=== PATIENT | female | born 1940 | race Caucasian/White ===

== ENCOUNTER 2018-10-05 17:54 | Emergency (ER) | payer OTHER ==
[2018-10-05] MEDS ORDERED: ALBUTEROL SO4 2.5/IPRATROPIUM 0.5 INH SOL 3 ML VIAL.NEB. NEB ONE ×4 (17:55→18:33)
--- NOTE | 2018-10-05 18:07 | PDOC ---
Documentation entered by Trevon Cortez SCRIBE, acting as scribe for Melissa Davenport MD. Melissa Davenport MD: This documentation has been prepared by the Diego au Xhesika, SCRIBE, under my direction and personally reviewed by me in its entirety. I confirm that the documentation accurately reflects all work, treatment, procedures, and medical decision making performed by me. Attending Attestation - Resident Resident Name: TommyAnia - ED Attending Attestation I have performed the following: I have examined & evaluated the patient, The case was reviewed & discussed with the resident, I agree w/resident's findings & plan, Exceptions are as noted - HPI HPI: 10/05/18 18:10 The patient is a 77 year old female, with a significant PMH of IDDM, hypertension, hyperlipidemia, Anxiety, and Alzheimer's who presents to the emergency department with one week of dry productive cough, worsening today. The patient states they went hiking in a cave on Sunday and took a 4hr trip to [place] 2 weeks ago. The patient states she had asthma in the past but does not remember the last time she used her inhaler. The patient denies chest pain, SOB, sweating or dizziness. Denies fever, chills , nausea, vomit, diarrhea and constipation. Denies dysuria, frequency, urgency and hematuria. Allergies: alcohol, theophylline, mold, aspirin, and Anesthesia Past surgical history: R ROTATOR CUFF-98,L-2001, cholecystectomy Social history: None reported - Physicial Exam PE: 10/05/18 18:04 awake alert nad decreased air flow bases no audible wheezes. no crackles. normal effort. heart rrr no mrg abd soft nt nd ext wwp no edema. no calf tenderness. nuero moves all ext. - Medical Decision Making 10/05/18 18:05 77 yo F with h/o dm alzheimer dementia bipolar asthma here with cough for one week. nonproductive. was hiking a cave one week ago. no f/c no n/v no cp no swelling edema. travel 4 hrs to [place] recently. no h/o pe or dvt. no sick contacts. has not used inhaler in many years. 10/05/18 18:19 differntial bronchitis, reactive or viral asthma or rad, pna, chf plan cxr bronchodilators reassess. 10/05/18 18:53 pt feels bettr post treatment cxr negative for infection, mild hyperinflation. dc home fu pcp rx for inhaler albuterol
--- NOTE | 2018-10-05 18:12 | PDOC ---
History of Present Illness - General Chief Complaint: Respiratory Stated Complaint: COUGH Time Seen by Provider: 10/05/18 17:55 - History of Present Illness Initial Comments: Barbie Mendez is a 77yo woman with a PMH of HLD, DM, Alzheimer's, bipolar disorder (?), remote h/o asthma (no longer requires treatment) who presents with 6 days of worsening dry cough. Her is present and helps provide history. Per Ms Mendez, she and her went to visit a [facility] last Sunday, and she developed the cough later that day or early Sunday. She attributes the cough to the cold, wet air in the cave. She does not remember whether humidity used to contribute to her asthma symptoms. She denies any nasal congestion, sore throat, sputum production, SOB/BARNETT, fevers, or chills. She has no known sick contacts but does report that she was at a graduation ceremony and green party two weeks ago (one week before onset of symptoms). The cough has worsened in frequency and intensity over the past week. Past History - Past Medical History Allergies/Adverse Reactions: Allergies Allergy/AdvReac Type Severity Reaction Status Date / Time alcohol Allergy Severe Vomiting Verified 10/05/18 17:57 theophylline [Theophylline] Allergy Intermediate TACHYCARDIA Verified 10/05/18 17:57 aspirin Allergy Verified 10/05/18 17:57 LODINE Allergy Intermediate UNKNOWN Uncoded 10/05/18 17:57 MOLD Allergy Intermediate UNKNOWN Uncoded 10/05/18 17:57 ANESTHESIA AdvReac Severe Vomiting Uncoded 10/05/18 17:57 Home Medications: Ambulatory Orders Cholecalciferol (Vitamin D3) [Vitamin D-3] 2,000 unit PO DAILY capsule Albuterol Sulfate Inhaler - [Ventolin HFA Inhaler -] 1 - 2 inh PO Q4H PRN #1 inhaler 10/05/18 Glyburide/Metformin HCl [Glyburide-Metformin 5-500 mg] 1 each PO ASDIR 10/05/18 Memantine HCl [Namenda -] 10 mg PO BID 10/05/18 Risperidone 1 mg PO HS 10/05/18 Sertraline HCl [Zoloft] 100 mg PO DAILY 10/05/18 Vit A/Vit C/Vit E/Zinc/Copper [Preservision Tablet] 1 each PO DAILY 10/05/18 Anemia: No Asthma: Yes (DX 1991) Cancer: No Cardiac Disorders: No CVA: No COPD: No CHF: No Dementia: Yes Diabetes: Yes (DX 2002) GI Disorders: Yes (IBS) Disorders: No HTN: Yes Hypercholesterolemia: Yes Liver Disease: No Seizures: No Thyroid Disease: No - Surgical History Abdominal Surgery: No Appendectomy: No Cardiac Surgery: No Cholecystectomy: Yes Lung Surgery: No Neurologic Surgery: No Orthopedic Surgery: Yes (R ROTATOR CUFF-98,L-2001) - Immunization History Immunization Up to Date: Yes - Suicide/Smoking/Psychosocial Hx Smoking Status: No Smoking History: Never smoked Years of Tobacco Use: 0 Have you smoked in the past 12 months: No Number of Cigarettes Smoked Daily: 0 Cigars Per Day: 0 Information on smoking cessation initiated: No Hx Alcohol Use: No Drug/Substance Use Hx: No Substance Use Type: None Hx Substance Use Treatment: No Review of Systems - Review of Systems Comments:: General: No fevers, no chills, no weight or appetite change, no malaise HEENT: No changes in vision, no changes in hearing, no congestion, no sore throat CV: No chest pain, no palpitations, no LE edema Pulm: No SOB, +cough, no wheezing GI: No nausea or vomiting, no change in bowel habits, no melena : No frequency, no urgency, no dysuria Musc: No back pain, no joint swelling, no recent injury Skin: No rash, no lesions, no erythema Endo: No excessive thirst, no heat/cold intolerance Heme: No unusual bruising or bleeding, no swollen glands Neuro: No syncope, no numbness/tingling, no focal weakness Vasc: No claudication Psych: No recent change in mood, no SI or HI *Physical Exam - Vital Signs Last Vital Signs Temp Pulse Resp BP Pulse Ox 98.6 F 90 20 169/88 99 10/05/18 17:54 10/05/18 17:54 10/05/18 17:54 10/05/18 17:54 10/05/18 17:54 - Physical Exam Comments: General: Comfortable, no acute distress HEENT: PERRL, EOMI, MMM, voice normal, normal neck ROM Cards: RRR, no murmur appreciated Pulm: Comfortable on room air, clear to auscultation bilaterally, no wheezing or crackles though soft breath sounds limited exam Abd: Soft, nontender, nondistended Ext: Atraumatic. No LE edema. Moves all extremities Vasc: Extremities WWP Skin: Normal color, no rashes or lesions Neuro: A&Ox3 w/ some deficits in memory (does not remember asthma triggers, looked to for detailed answers to questions about medical history), CN grossly intact, normal speech, motor/sensory grossly intact and symmetric Psych: Mood appropriate to situation Medical Decision Making - Medical Decision Making 10/05/18 18:07 Barbie Mendez is a 77yo woman with a PMH of HLD, DM, Alzheimer's, remote h/o asthma (no longer requires treatment) who presents with 6 days of worsening dry cough without associated symptoms. - No systemic symptoms suggesting severe illness. Dry cough observed in ED. Most likely bronchitis or URI w/ underlying reactive airway disease given h/o asthma - Recent travel to [place] two weeks ago, but no SOB, tachycardia, pleuritic pain, calf swelling or calf pain, h/o DVT or PE - Duonebs ordered for symptoms - CXR to evaluate for focal pathology 10/05/18 18:36 - Improved air movement following duoneb. Will give 2nd neb prior to discharge - CXR without focal pathology, though appears hyperinflated c/w asthma or COPD ( though never smoker) - PMD is Dr Zavala. Discussed follow up within the next week for bronchitis vs continued asthma. - Pt has been taking Benadryl at home with some relief of symptoms. Recommending switching to non-drowsy antihistamine - Will give prescription for albuterol inhaler Seen and discussed with Dr Davenport. Ania Sanders PGY1 *DC/Admit/Observation/Transfer Diagnosis at time of Disposition: Bronchitis - Discharge Dispostion Condition at time of disposition: Stable - Prescriptions Prescriptions: Albuterol Sulfate Inhaler - [Ventolin HFA Inhaler -] 1 - 2 inh PO Q4H PRN #1 inhaler PRN Reason: Cough - Referrals Referrals: Tyshawn Zavala MD [Primary Care Provider] - - Patient Instructions Printed Discharge Instructions: DI for Acute Bronchitis Additional Instructions: Discharge Instructions: You were seen in the emergency department for a worsening cough. You were given a breathing treatment and had an xray. There was nothing concerning seen on the xray. You most likely have a viral respiratory infection such as bronchitis. Home Care and Follow Up: - You have been prescribed an inhaler to help with your cough. This can be taken every 4 hours if needed for symptoms - Consider taking a daily allergy medication such as Claritin, Zyrtec, or Mirian - Please make an appointment to follow up with your regular doctor within the next week. He may wish to continue your inhaler or you may need additional testing. - Seek immediate care if you have worsening of your symptoms, you develop fever to 101F or shivering chills, you have shortness of breath, you develop chest pain, or you have any other medical emergency. - Post Discharge Activity
[2018-10-05 18:29] VITALS: TEMP 98.6; BMI 25.7
[2018-10-05 18:52] VITALS: BP 132/79; PULSE 86
== END 2018-10-05 18:50 | disposition home or self-care (01) ==
LOC: FER 17:54
PROC: 3E0F7GC Introduction of Other Therapeutic Substance into Respiratory Tract, Via Natural or Artificial Opening (ICD-10-PCS; principal; 2018-10-05)
DX: J40 Bronchitis, not specified as acute or chronic (principal); I10 Essential (primary) hypertension; E78.00 Pure hypercholesterolemia, unspecified; E11.9 Type 2 diabetes mellitus without complications; K58.9 Irritable bowel syndrome, unspecified; J45.909 Unspecified asthma, uncomplicated
CPT/HCPCS: 71046-TC-FY; 99283-25

== ENCOUNTER 2019-04-15 13:04 | Emergency (ER) | payer OTHER ==
[2019-04-15 13:09] VITALS: BMI 25.0
--- NOTE | 2019-04-15 13:20 | PDOC ---
History of Present Illness - General History Source: Patient Exam Limitations: No Limitations - History of Present Illness Initial Comments: 04/15/19 13:20 Barbie Mendez is a 78M with PMH Alzheimer's, NIDDM presenting with L-sided lower abd pain. Patient and report that patient has been having about 7 days of a non- specific L lower abdominal pain. Pain feels like a squeezing sensation that comes and goes, is not associated with meals, is not associated with N/V/C/D or urinary symptoms, is not associated with position, and does not radiate anywhere else. Has good appetite, having BM without issue, no bloody stools. No prior abd pain like this. Denies recent trauma or heavy lifting, denies any back pain or sciatica pain. Had a colonoscopy in the distant past, has not had one since. Has not seen an OBGYN in decades, denies weight loss, malaise, bloating, vaginal bleeding/ discharge, no known history of ovarian cysts. Denies fever/chills, dizziness, chest pain, SOB, weakness. Has had a few days of a wet cough, has had this in the past PMH: NIDDM, Alzheimer's PSH: cholecystectomy 30 years ago. SH: denies smoking, alcohol use, drug use Allergy: alcohol, ASA <Blair Thompson - Last Filed: 04/15/19 16:01> <Adia Vargas - Last Filed: 04/15/19 16:12> - General Chief Complaint: Pain, Acute Stated Complaint: LEFT LOWER ABD PAIN Time Seen by Provider: 04/15/19 13:20 Past History - Past Medical History Anemia: No Asthma: Yes (DX 1991) Cancer: No Cardiac Disorders: No CVA: No COPD: No CHF: No Dementia: Yes Diabetes: Yes (DX 2002) GI Disorders: Yes (IBS) Disorders: No HTN: Yes Hypercholesterolemia: Yes Liver Disease: No Seizures: No Thyroid Disease: No - Surgical History Abdominal Surgery: No Appendectomy: No Cardiac Surgery: No Cholecystectomy: Yes Lung Surgery: No Neurologic Surgery: No Orthopedic Surgery: Yes (R ROTATOR CUFF-98,L-2001) - Immunization History Immunization Up to Date: Yes - Psycho Social/Smoking Cessation Hx Smoking Status: No Smoking History: Never smoked Years of Tobacco Use: 0 Have you smoked in the past 12 months: No Number of Cigarettes Smoked Daily: 0 Cigars Per Day: 0 Hx Alcohol Use: No Drug/Substance Use Hx: No Substance Use Type: None Hx Substance Use Treatment: No <Blair Thompson - Last Filed: 04/15/19 16:01> <Adia Vargsa - Last Filed: 04/15/19 16:12> - Past Medical History Allergies/Adverse Reactions: Allergies Allergy/AdvReac Type Severity Reaction Status Date / Time alcohol Allergy Severe Vomiting Verified 04/15/19 13:05 theophylline [Theophylline] Allergy Intermediate TACHYCARDIA Verified 04/15/19 13:05 aspirin Allergy Verified 04/15/19 13:05 LODINE Allergy Intermediate UNKNOWN Uncoded 04/15/19 13:05 MOLD Allergy Intermediate UNKNOWN Uncoded 04/15/19 13:05 ANESTHESIA AdvReac Severe Vomiting Uncoded 04/15/19 13:05 Home Medications: Ambulatory Orders Cholecalciferol (Vitamin D3) [Vitamin D-3] 2,000 unit PO DAILY capsule Albuterol Sulfate Inhaler - [Ventolin HFA Inhaler -] 1 - 2 inh PO Q4H PRN #1 inhaler 10/05/18 Glyburide/Metformin HCl [Glyburide-Metformin 5-500 mg] 1 each PO ASDIR 10/05/18 Memantine HCl [Namenda -] 10 mg PO BID 10/05/18 Risperidone 1 mg PO HS 10/05/18 Sertraline HCl [Zoloft] 100 mg PO DAILY 10/05/18 Vit A/Vit C/Vit E/Zinc/Copper [Preservision Tablet] 1 each PO DAILY 10/05/18 Review of Systems - Review of Systems Constitutional: No: Symptoms Reported HEENTM: No: Symptoms Reported Respiratory: Yes: Cough Cardiac (ROS): No: Chest Pain, Edema, Syncope, Chest Tightness ABD/GI: Yes: Symptoms Reported (abdominal pain). No: Abdominal Distended, Blood Streaked Bowels, Constipated, Diarrhea, Nausea, Vomiting : No: Symptoms Reported Musculoskeletal: No: Symptoms Reported Integumentary: No: Symptoms Reported Neurological: No: Symptoms reported Endocrine: No: Symptoms Reported Hematologic/Lymphatic: No: Symptoms Reported All Other Systems: Reviewed and Negative <Blair Thompson - Last Filed: 04/15/19 16:01> *Physical Exam - Vital Signs Last Vital Signs Temp Pulse Resp BP Pulse Ox 98.4 F 89 16 155/94 100 04/15/19 13:05 04/15/19 13:05 04/15/19 13:05 04/15/19 13:05 04/15/19 13:05 - Physical Exam General Appearance: Yes: Nourished, Appropriately Dressed. No: Apparent Distress HEENT: positive: EOMI, ANALI, Normal Voice, Symmetrical, Pharynx Normal, Hearing Grossly Normal. negative: Scleral Icterus (R), Scleral Icterus (L) Neck: positive: Trachea midline, Supple. negative: Tender, Lymphadenopathy (R) , Lymphadenopathy (L) Respiratory/Chest: positive: Lungs Clear, Normal Breath Sounds. negative: Chest Tender, Respiratory Distress, Accessory Muscle Use, Labored Respiration, Crackles, Rales, Rhonchi, Stridor, Wheezing Cardiovascular: positive: Regular Rhythm, Regular Rate. negative: Edema, Murmur Gastrointestinal/Abdominal: positive: Normal Bowel Sounds, Soft, Protuberent, Other (negative Woo sign, positive left straight leg raise). negative: Tender, Flat, Organomegaly, Pulsatile Mass, Guarding, Rebound, Hernia Musculoskeletal: positive: Normal Inspection. negative: CVA Tenderness, Vertebral Tenderness Extremity: positive: Normal Capillary Refill, Normal Inspection, Normal Range of Motion. negative: Tender Integumentary: positive: Normal Color, Dry, Warm. negative: Cyanotic Neurologic: positive: Alert, Normal Mood/Affect, Normal Response, Motor Strength 5/5 <Blair Thompson - Last Filed: 04/15/19 16:01> - Vital Signs Last Vital Signs Temp Pulse Resp BP Pulse Ox 98.4 F 89 16 155/94 100 04/15/19 13:05 04/15/19 13:05 04/15/19 13:05 04/15/19 13:05 04/15/19 13:05 <Adia Vargas - Last Filed: 04/15/19 16:12> ED Treatment Course - LABORATORY CBC & Chemistry Diagram: 04/15/19 14:00 04/15/19 14:00 <Blair Thompson - Last Filed: 04/15/19 16:01> - LABORATORY CBC & Chemistry Diagram: 04/15/19 14:00 04/15/19 14:00 - ADDITIONAL ORDERS Additional order review: Laboratory Results 04/15/19 04/15/19 04/15/19 14:05 14:00 14:00 Sodium 139 Potassium 4.4 Chloride 107 Carbon Dioxide 27 Anion Gap 5 L BUN 17.0 Creatinine 0.8 Est GFR (CKD-EPI)AfAm 80.70 Est GFR (CKD-EPI)NonAf 69.63 Random Glucose 131 H Calcium 9.3 Total Bilirubin 0.5 AST 29 ALT 31 Alkaline Phosphatase 103 Total Protein 6.9 Albumin 4.2 Lipase 90 Urine Color Yellow Urine Appearance Clear Urine pH 5.0 Urine Protein Negative Urine Glucose (UA) Negative Urine Ketones Negative Urine Blood Negative Urine Nitrite Negative Urine Bilirubin Negative Urine Urobilinogen 0.2 Ur Leukocyte Esterase Trace H Urine RBC 0-2 Urine WBC 0-2 04/15/19 14:00 RBC 4.78 MCV 88.0 MCHC 33.6 RDW 13.3 MPV 7.4 L Neutrophils % 67.0 Lymphocytes % 19.4 Monocytes % 6.5 Eosinophils % 6.3 H Basophils % 0.8 - Medications Given in the ED: ED Medications Discontinued Medications Generic Name Dose Route Start Last Admin Trade Name Freq PRN Reason Stop Dose Admin Sodium Chloride 1,000 ml 04/15/19 14:00 04/15/19 14:21 Normal Saline - IV 04/15/19 14:01 1,000 ml ONCE ONE Administration <Adia Vargas - Last Filed: 04/15/19 16:12> Medical Decision Making - Medical Decision Making 04/15/19 13:20 Barbie Mendez is a 78M with PMH Alzheimer's, NIDDM presenting with L-sided lower abd pain. Pain is concerning for diverticulitis, renal calculus, UTI/pyelo, AAA, MSK injury, SBO. Has histoyr of abdominal pain but is grossly non-tender to exam at this time, concern for mesenteric ischemia. CMP CBC Lipase UA/UC CT abd w/ IV contrast CMP, CBC, and lipase are unremarkable. Pending lactate and CT scan. <Blair Thompson - Last Filed: 04/15/19 16:01> Discharge - Discharge Information Problems reviewed: Yes <Blair Thompson - Last Filed: 04/15/19 16:01> <Adia Vargas - Last Filed: 04/15/19 16:12> - Discharge Information Clinical Impression/Diagnosis: Abdominal pain Qualifiers: Abdominal location: left lower quadrant Qualified Code(s): R10.32 - Left lower quadrant pain Condition: Stable Disposition: HOME - Patient Discharge Instructions Patient Printed Discharge Instructions: DI for Abdominal Pain-Adult, DI for Constipation Additional Instructions: Today you were evaluated for abdominal pain. We checked your blood labs and did not find any evidence of infection, anemia, electrolyte problems, or pancreatitis. Your urine results show no evidence of infection Your CT scan does not show any infection in your intestines or other concerning disease causing your pain. Your pain is most likely caused by a muscle strain, as we have examined you and found no evidence of severe disease. Please refrain from strenuous activity, and rest your leg for the next week. If you have pain, please take Tylenol as needed as instructed on the bottle. Please follow-up with your primary doctor in the next 3 days for further care. If you experience worsening pain, nausea, vomiting, chest pain, shortness of breath, bloody stools, urinary discomfort, or any other new or concerning symptoms, pleas return the emergency room.
[2019-04-15] MEDS ORDERED: SODIUM CHLORIDE 0.9% 500 ML INFUS.BAG IV ONE (14:00)
--- NOTE | 2019-04-15 14:01 | PDOC ---
Attending Attestation - Resident Resident Name: Blair Thompson - ED Attending Attestation I have performed the following: I have examined & evaluated the patient, The case was reviewed & discussed with the resident, I agree w/resident's findings & plan - HPI HPI: 04/15/19 14:00 78 yo woman with a PMH of HLD, DM, Alzheimer's, bipolar disorder (?), remote h/ o asthma presenting with left lower abdominal pain x 1 week. Normal appetite/eating and drinking makes BM every couple of days. No f/c, n/v/d, constipation, cp or sob, escobar, dizziness, urinary sx. no bloody stools No trauma No suspicious food intake. no dietary changes does tend to drink more soda and not keep up with good hydration/diet intake. PSH: cholecystectomy, SARAH 04/15/19 15:52 04/15/19 16:47 04/15/19 16:48 04/15/19 16:49 - Physicial Exam PE: 04/15/19 14:00 Agree with the resident's HPI and PE as documented in the electronic medical record. NAD, well appearing, pleasantly demented, alert, oriented to person and place, EOMI, PERRL, nl conjunctiva, anicteric; neck supple. lungs clear, RRR, abdomen soft nontender. no rebound, guarding. no CVAT. Back nontender. VILLEGAS x4, no focal neuro deficits. clear speech. No peripheral edema. normal color for ethnicity, WWP. 04/15/19 15:11 04/15/19 15:52 - Medical Decision Making 04/15/19 14:01 Vital Signs Temp Pulse Resp BP Pulse Ox 98.4 F 89 16 155/94 100 04/15/19 13:05 04/15/19 13:05 04/15/19 13:05 04/15/19 13:05 04/15/19 13:05 DDx abdominal pain: Renal colic, biliary colic, metabolic/electrolyte derangements. GERD, PUD, esophageal spasm, pancreatitis, hepatitis, constipation , colitis, gastroenteritis, cholecystitis, UTI, pyelonephritis, ileus, SBO, medication side effect, hernia, appendicitis, diverticulitis, mesenteric ischemia. msk strain, mesenteric adenitis, psoas abscess. The patient appears comfortable and no pain, benign abdomen. Tolerating oral intake, eating cookies and marysol PO fluids. Vital signs reviewed and are normal. On repeat physical exam, the abdomen is soft and nontender, no suggestive findings for acute abdominal process at this time. labs and lytes reviewed, wnl , lactic is mildly elevated to 2.7, pt does not appear toxic or septic. bicarb is normal, not true acidosis. pt getting IVF hydration. normal wbc ct, no s/s of inflammation/infection.. lipase and lfts normal. CT a/p with fecal retention, otherwise unremarkable; No evidence of pancreatitis, AAA, cholecystitis, choledocholithiasis, cholangitis, mesenteric ischemia, small bowel obstruction, diverticulitis, colitis, appendicitis, or pelvic etiolology. No intra-abdominal abscess or pneumoperitoneum, incidental renal cyst is noted. Fatty liver. No free fluid or significant lymphadenopathy. supportive measures, instruction on otc use of miralax for bowel regimen, high fiber diet and hydration to help with more regular BM The patient was advised that even though there is no evidence of a surgical emergency at this time, sometimes this is not visible on CT or in the labs early in a disease course and that if there is additional pain they are to return for repeat evaluation. The patient stated understanding of this, has decision making capacity and is discharged in stable condition. The patient was instructed to return to the emergency department for re-evaluation and sooner if they feel worse in any way. All diagnostics tests reviewed and discussed with the patient and family. 04/15/19 16:47
[2019-04-15 14:23] LABS: RBC 4.78 M/mm3 (3.60-5.2)
[2019-04-15 14:30] LABS: BASO % 0.8 % (0-2.0); EOS % 6.3 % (0-4.5); HEMOGLOBIN 14.1 GM/dl (10.7-15.3); LYMPH % 19.4 % (8-40); MCH 29.6 pg (25.7-33.7); MCHC 33.6 g/dl (32.0-36.0); MEAN PLT VOLUME 7.4 fl (7.5-11.1); MONO % 6.5 % (3.8-10.2); PLATELET COUNT 236 K/MM3 (134-434); RDW 13.3 % (11.6-15.6); WHITE BLOOD COUNT 6.7 K/mm3 (4.0-10.8)
[2019-04-15 14:37] LABS: ALBUMIN 4.2 g/dl (3.4-5.0); BILIRUBIN,TOTAL 0.5 mg/dl (0.2-1); CALCIUM 9.3 mg/dl (8.5-10); CREATININE 0.8 mg/dl (0.55-1.3); POTASSIUM 4.4 mmol/L (3.5-5.1); TOT PROT 6.9 g/dl (6.4-8.2)
[2019-04-15 16:57] VITALS: BP 163/90; PULSE 86; TEMP 97.9
== END 2019-04-15 16:59 | disposition home or self-care (01) ==
LOC: FER 13:04
PROC: 3E0337Z Introduction of Electrolytic and Water Balance Substance into Peripheral Vein, Percutaneous Approach (ICD-10-PCS; principal; 2019-04-15)
DX: R10.32 Left lower quadrant pain (principal); G30.9 Alzheimer's disease, unspecified; F02.80 Dementia in other diseases classified elsewhere, unspecified severity, without behavioral disturbance, psychotic disturbance, mood disturbance, and anxiety; E11.9 Type 2 diabetes mellitus without complications; K58.9 Irritable bowel syndrome, unspecified; E78.00 Pure hypercholesterolemia, unspecified; I10 Essential (primary) hypertension
CPT/HCPCS: 36415; 74177-TC; 80053; 81003; 81015; 83605; 83690; 85025; 87086; 99284-25; Q9967

== ENCOUNTER 2019-07-19 22:46 | Emergency (ER) | payer OTHER ==
--- NOTE | 2019-07-19 22:52 | PDOC ---
History of Present Illness - General Chief Complaint: Weakness Stated Complaint: WEAKNESS Time Seen by Provider: 07/19/19 22:52 - History of Present Illness Initial Comments: 07/19/19 23:45 This 78-year-old woman with a history of Alzheimer's, DM, HLD BIBA accompanied by her family with a 1 day history of generalized weakness and intermittent lightheadedness. This morning, the patient had a few episodes of watery diarrhea; no nausea/vomiting/fever/chills noted. Diarrhea resolved later in the day. describes patient having difficulty in ambulation throughout the day; when she was helped up stairs this evening, when she reached the top step her legs gave out. EMS was called. There has been no difficulty speaking/facial droop/focal arm or leg weakness. states that she was her normal baseline yesterday and attended a constitution party during which she demonstrated no difficulty with ambulation. states that the patient is chronically dehydrated related to her poor compliance with hydration and prescribed galantamine 24 mg daily causing diarrhea. The patient herself denies shortness of breath, chest pain, abdominal pain, dysuria. Medications as noted below Past History - Past Medical History Allergies/Adverse Reactions: Allergies Allergy/AdvReac Type Severity Reaction Status Date / Time alcohol Allergy Severe Vomiting Verified 04/15/19 13:05 theophylline [Theophylline] Allergy Intermediate TACHYCARDIA Verified 04/15/19 13:05 aspirin Allergy Verified 04/15/19 13:05 LODINE Allergy Intermediate UNKNOWN Uncoded 04/15/19 13:05 MOLD Allergy Intermediate UNKNOWN Uncoded 04/15/19 13:05 ANESTHESIA AdvReac Severe Vomiting Uncoded 04/15/19 13:05 Home Medications: Ambulatory Orders Cholecalciferol (Vitamin D3) [Vitamin D-3] 2,000 unit PO DAILY capsule 11/02/14 Albuterol Sulfate Inhaler - [Ventolin HFA Inhaler -] 1 - 2 inh PO Q4H PRN #1 inhaler 10/05/18 Glyburide/Metformin HCl [Glyburide-Metformin 5-500 mg] 1 each PO ASDIR 10/05/18 Memantine HCl [Namenda -] 10 mg PO BID 10/05/18 Risperidone 1 mg PO HS 10/05/18 Sertraline HCl [Zoloft] 100 mg PO DAILY 10/05/18 Vit A/Vit C/Vit E/Zinc/Copper [Preservision Tablet] 1 each PO DAILY 10/05/18 Galantamine HBr 07/19/19 Anemia: No Asthma: Yes (DX 1991) Cancer: No Cardiac Disorders: No CVA: No COPD: No CHF: No Dementia: Yes Diabetes: Yes (DX 2002) GI Disorders: Yes (IBS) Disorders: No HTN: Yes Hypercholesterolemia: Yes Liver Disease: No Seizures: No Thyroid Disease: No - Surgical History Abdominal Surgery: No Appendectomy: No Cardiac Surgery: No Cholecystectomy: Yes Lung Surgery: No Neurologic Surgery: No Orthopedic Surgery: Yes (R ROTATOR [id number],L-[id number]) - Immunization History Immunization Up to Date: Yes - Psycho Social/Smoking Cessation Hx Smoking Status: No Smoking History: Never smoked Years of Tobacco Use: 0 Have you smoked in the past 12 months: No Number of Cigarettes Smoked Daily: 0 Cigars Per Day: 0 Hx Alcohol Use: No Drug/Substance Use Hx: No Substance Use Type: None Hx Substance Use Treatment: No Review of Systems - Review of Systems Able to Perform ROS?: Yes Comments:: 12 point review of systems is negative except for what is noted in the history of present illness *Physical Exam - Physical Exam GENERAL: Elderly female, awake and responsive, pleasant and in no acute distress HEAD: Normal with no signs of trauma. EYES: PERRLA, EOMI, sclera anicteric, conjunctiva clear. ENT: Ears normal, nares patent, oropharynx clear without exudates. Dry mucous membranes. NECK: Normal range of motion, supple without lymphadenopathy, JVD, or masses. LUNGS: Breath sounds equal, clear to auscultation bilaterally. No wheezes, and no crackles. HEART:Regular rate and rhythm, normal S1 and S2 without murmur, rub or gallop. ABDOMEN:.normal bowel sounds No guarding,tenderness or rebound.No masses No distention. EXTREMITIES: Normal range of motion, no edema. No clubbing or cyanosis. No erythema, or tenderness. NEUROLOGICAL: Cranial nerves II through XII grossly intact. Normal speech. No focal neurological deficits. MUSCULOSKELETAL: Back non-tender to palpation, no CVA tenderness SKIN: Warm, Dry, normal turgor, no rashes or lesions noted. ED Treatment Course - LABORATORY CBC & Chemistry Diagram: 07/19/19 23:00 07/19/19 23:00 Medical Decision Making - Medical Decision Making As noted above, this 78-year-old woman with a history of Alzheimer's dementia, DM, HLD was brought in by ambulance with generalized weakness for 1 day. Of note, the patient had a few episodes of diarrhea this morning (resolved since then). Patient has a history of chronic dehydration, according to her because of side effects of medication and her poor compliance with oral hydration. Exam as noted with dry mucous membranes. Patient's gait was examined when she was helped to the restroom: She was briefly lightheaded when sitting up from supine position. 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 CBC, chemistry profile, troponin, urinalysis sent: Laboratory evaluation was essentially normal except for evidence of prerenal azotemia with BUN of 25 and creatinine of 0.9, consistent with dehydration, likely secondary to fluid loss from diarrhea and poor replacement through oral hydration. CBC was normal with no elevation of white blood cell count and normal hemoglobin/hematocrit. Electrolytes were normal as well as remainder of the chemistry profile. Troponin was not elevated. Urinalysis was essentially normal with white blood cells but significant amount of epithelial cells. No RBCs or bacteria were present in the microscopic exam. Noncontrast head CT was performed to evaluate for acute neurologic abnormalities: Interpretation by Imaging evaluation advisor: Chronic microvascular changes but no acute infarct/hemorrhage/mass. New Twelve-lead electrocardiogram performed which showed normal sinus rhythm with occasional PVCs. Right bundle branch block was present. Patient received approximately 500 mL of IV normal saline and drank approximately 20 ounces of water during the time her work-up was underway. After hydration, the patient had no further lightheadedness or evidence of generalized weakness with assisted ambulation. Patient was discharged with strong recommendation to continue oral hydration; she should follow-up with her PMD, Dr. Purvis within the next 2 to 3 days. If weakness/lightheadedness recurs, she should return to the emergency room Discharge - Discharge Information Problems reviewed: Yes Clinical Impression/Diagnosis: Dehydration Condition: Stable Disposition: HOME - Follow up/Referral Referrals: Tyshawn Zavala MD [Primary Care Provider] - 3 days - Patient Discharge Instructions Patient Printed Discharge Instructions: Dehydration Additional Instructions: drink plenty of fluids as discussed Return to ER if weakness recurs or diarrhea persists Return to ER if vomiting/fever/pain develops Follow-up with Dr. Zavala within the next 2 to 3 days - Post Discharge Activity
[2019-07-19 22:55] VITALS: BP 136/68; PULSE 90; TEMP 98.1; BMI 24.9
[2019-07-19 23:20] LABS: BASO % 0.3 % (0-2.0); HEMATOCRIT 40.2 % (32.4-45.2); HEMOGLOBIN 13.4 GM/dl (10.7-15.3); LYMPH % 5.1 % (8-40); MCH 29.8 pg (25.7-33.7); MCHC 33.4 g/dl (32.0-36.0); MEAN CELL VOLUME 89.2 fl (80-96); MEAN PLT VOLUME 7.3 fl (7.5-11.1); MONO % 5.2 % (3.8-10.2); NEUT % 88.4 % (42.8-82.8); PLATELET COUNT 217 K/MM3 (134-434); RBC 4.51 M/mm3 (3.60-5.2); WHITE BLOOD COUNT 8.6 K/mm3 (4.0-10.8)
[2019-07-19 23:31] LABS: ALBUMIN 3.8 g/dl (3.4-5.0); BILIRUBIN,TOTAL 0.7 mg/dl (0.2-1); CALCIUM 8.5 mg/dl (8.5-10); CREATININE 0.9 mg/dl (0.55-1.3); POTASSIUM 3.8 mmol/L (3.5-5.1); TOT PROT 6.5 g/dl (6.4-8.2)
[2019-07-19] MEDS ORDERED: SODIUM CHLORIDE 500 ML IV STA (23:41)
[2019-07-20 00:01] LABS: EPITHELIAL CELLS MODERATE /hpf
--- NOTE | 2019-07-20 09:53 | EKG ---
Test Reason : Blood Pressure : / mmHG Vent. Rate : 091 BPM Atrial Rate : 091 BPM P-R Int : 128 ms QRS Dur : 128 ms QT Int : 400 ms P-R-T Axes : 034 085 028 degrees QTc Int : 492 ms SINUS RHYTHM WITH OCCASIONAL PREMATURE VENTRICULAR COMPLEXES RIGHT BUNDLE BRANCH BLOCK ABNORMAL ECG NO PREVIOUS ECGS AVAILABLE Confirmed by Hilario Wade MD ([id number]) on 07/20/2019 9:53:12 AM Referred By: MD SOLARES Confirmed By:Hilario Wade MD
== END 2019-07-20 01:35 | disposition home or self-care (01) ==
LOC: FER 22:46
PROC: 3E0337Z Introduction of Electrolytic and Water Balance Substance into Peripheral Vein, Percutaneous Approach (ICD-10-PCS; principal; 2019-07-19)
DX: E86.0 Dehydration (principal); Z91.09 Other allergy status, other than to drugs and biological substances; Z88.8 Allergy status to other drugs, medicaments and biological substances; J30.1 Allergic rhinitis due to pollen; G30.9 Alzheimer's disease, unspecified; F02.80 Dementia in other diseases classified elsewhere, unspecified severity, without behavioral disturbance, psychotic disturbance, mood disturbance, and anxiety; E11.9 Type 2 diabetes mellitus without complications; E78.5 Hyperlipidemia, unspecified; I10 Essential (primary) hypertension
CPT/HCPCS: 36415; 70450-TC; 71045-TC-FY; 80053; 81003; 81015; 82550; 84484; 85025; 93005; 99285-25

== ENCOUNTER 2022-06-14 10:58 | Emergency (ER) | payer OTHER, BC ==
[2022-06-14] MEDS ORDERED: SODIUM CHLORIDE 0.9% 500 ML INFUS.BAG IV ONE ×2 (11:18→13:33)
[2022-06-14 11:45] VITALS: BP 168/86; PULSE 78; RESP 18; TEMP 98.3; BMI 26.8
[2022-06-14 11:59] LABS: INR 1.07 (0.83-1.09); PROTHROMBIN TIME (PATIENT) 12.3 SEC (9.7-13.0)
[2022-06-14 12:00] LABS: HEMATOCRIT 42.8 % (32.4-45.2); HEMOGLOBIN 14.9 G/dL (10.7-15.3); MCH 30.4 pg (25.7-33.7); MCHC 34.8 g/dl (32.0-36.0); MEAN CELL VOLUME 87.3 fl (80-96); MEAN PLT VOLUME 7.5 fl (7.5-11.1); PLATELET COUNT 189.1 10^3/uL (134-434); RDW 14.3 % (11.6-15.6); WHITE BLOOD COUNT 10.4 10^3/uL (4.0-10.8)
[2022-06-14 12:01] LABS: ACTIVATED PTT 27.8 SECONDS (25.2-36.5)
[2022-06-14 12:05] LABS: ALBUMIN 4.4 g/dl (3.4-5.0); CALCIUM 9.5 mg/dl (8.5-10); CREATININE 0.9 mg/dl (0.55-1.3); MAGNESIUM 1.9 mg/dL (1.8-2.4); TOT PROT 7.1 g/dl (6.4-8.2)
[2022-06-14 12:51] LABS: PLATELET ESTIMATE ADEQUATE
[2022-06-14 13:31] LABS: VENOUS O2 SATURATION 68.2 % (70-80); VENOUS PCO2 51.7 mmHg (38-52); VENOUS PH 7.274 (7.310-7.410)
== END 2022-06-14 15:37 | disposition home or self-care (01) ==
LOC: FER 10:58
DX: R53.1 Weakness (principal)
CPT/HCPCS: 0241U-QW; 36415; 70450-TC; 71045-TC-FY; 80053; 81003; 81015; 82803; 83735; 84443; 84484; 85027; 85610; 85730; 87086; 93005; 99284-25

== ENCOUNTER 2022-12-24 22:39 | Inpatient (IN) | payer OTHER, BC ==
[2022-12-24] MEDS ORDERED: ACETAMINOPHEN 1000 MG/100 ML BAG IVPB ONE (22:53)
[2022-12-24] MEDS ORDERED: ACETAMINOPHEN INJECTION 100 ML IVPB ONE (22:59)
[2022-12-24] MEDS ORDERED: DEXAMETHASONE SOD PHOSPHATE/PF 10 MG/ML SDV ONE (23:00)
[2022-12-24 23:40] LABS: HEMATOCRIT 41.3 % (32.4-45.2); HEMOGLOBIN 14.3 G/dL (10.7-15.3); MCH 30.5 pg (25.7-33.7); MCHC 34.6 g/dl (32.0-36.0); MEAN CELL VOLUME 88.3 fl (80-96); MEAN PLT VOLUME 7.1 fl (7.5-11.1); PLATELET COUNT 153.9 10^3/uL (134-434); RBC 4.68 10^6/uL (3.60-5.2); RDW 14.7 % (11.6-15.6); WHITE BLOOD COUNT 8.3 10^3/uL (4.0-10.8)
[2022-12-24 23:57] LABS: ALBUMIN 4.6 g/dl (3.4-5.0); BILIRUBIN,TOTAL 0.7 mg/dl (0.2-1); CALCIUM 9.2 mg/dl (8.5-10.1); CREATININE 0.9 mg/dl (0.6-1.3); SGOT/AST 33.3 U/L (15-37); SGPT/ALT 35.1 U/L (7-52); TOT PROT 6.8 g/dl (6.4-8.2)
[2022-12-25 00:02] LABS: PLATELET ESTIMATE ADEQUATE
[2022-12-25] MEDS ORDERED: DEXAMETHASONE SOD PHOSPHATE 4 MG/1 ML VIAL IVPUSH ONE (00:19)
[2022-12-25] MEDS: SODIUM CHLORIDE 1,000 ML IV SCH (01:00)
[2022-12-25 02:48] VITALS: BMI 27.7
[2022-12-25] MEDS: REMDESIVIR 200 MG in SODIUM CHLORIDE 250 ML IVPB ONE ×2 (05:24→07:37)
[2022-12-25] MEDS ORDERED: ACETAMINOPHEN 1000 MG/100 ML BAG IVPB PRN (06:00)
[2022-12-25] MEDS: INSULIN SLIDING SCALE (NOVOLOG) 1 VIAL SQ SCH ×4 (06:52→21:24)
[2022-12-25] MEDS ORDERED: REMDESIVIR 200 MG in SODIUM CHLORIDE 250 ML IVPB ONE ×2 (07:29→08:41)
[2022-12-25] MEDS ORDERED: ALBUTEROL SO4 2.5/IPRATROPIUM 0.5 INH SOL 3 ML VIAL.NEB. NEB PRN (08:59)
[2022-12-25] MEDS ORDERED: guaiFENesin/D-METHORPHAN HB 10 ML UNIT-DOSE CUPS PO PRN (09:00)
[2022-12-25 09:11] LABS: HEMOGLOBIN 13.7 GM/dL (10.7-15.3); MEAN PLT VOLUME 7.8 fl (7.5-11.1)
[2022-12-25 09:16] LABS: HEMATOCRIT 41.1 % (32.4-45.2); MCH 29.2 pg (25.7-33.7); MCHC 33.3 g/dl (32.0-36.0); MEAN CELL VOLUME 87.9 fl (80-96); PLATELET COUNT 174 10^3/uL (134-434); RBC 4.67 M/mm3 (3.60-5.2); RDW 14.5 % (11.6-15.6); WHITE BLOOD COUNT 5.7 K/mm3 (4.0-10.0)
[2022-12-25 09:40] LABS: ALBUMIN 3.8 g/dl (3.4-5.0); BILIRUBIN,TOTAL 0.5 mg/dL (0.2-1); BLOOD UREA NITROGEN 23.5 mg/dL (7-18); CALCIUM 8.5 mg/dL (8.5-10.1); POTASSIUM 4.2 mmol/L (3.5-5.1); TOT PROT 6.6 g/dl (6.4-8.2)
[2022-12-25] MEDS ORDERED: DEXAMETHASONE SOD PHOSPHATE 4 MG/1 ML VIAL IVPUSH SCH (10:00)
[2022-12-25] MEDS: DEXAMETHASONE SOD PHOSPHATE 10 MG/1 ML VIAL IVPUSH SCH (12:23)
[2022-12-25] MEDS: ENOXAPARIN NA (PORCINE) 40 MG/0.4 ML DISP.SYRIN SQ SCH (12:23)
[2022-12-25] MEDS: risperiDONE 1 MG TABLET PO SCH (12:23)
[2022-12-25] MEDS: amLODIPine BESYLATE 2.5 MG TABLET (FP) PO SCH (12:23)
[2022-12-25] MEDS: SERTRALINE HCL 50 MG TABLET (FP) PO SCH (12:23)
[2022-12-25] MEDS: ATORVASTATIN CA 20 MG TABLET (FP) PO SCH (21:25)
[2022-12-26] MEDS: SODIUM CHLORIDE 1,000 ML IV SCH (04:19)
[2022-12-26] MEDS: INSULIN SLIDING SCALE (NOVOLOG) 1 VIAL SQ SCH ×3 (09:52→21:11)
[2022-12-26] MEDS: DEXAMETHASONE SOD PHOSPHATE 10 MG/1 ML VIAL IVPUSH SCH (10:39)
[2022-12-26] MEDS: SERTRALINE HCL 50 MG TABLET (FP) PO SCH (10:39)
[2022-12-26] MEDS: risperiDONE 1 MG TABLET PO SCH (10:40)
[2022-12-26] MEDS: ENOXAPARIN NA (PORCINE) 40 MG/0.4 ML DISP.SYRIN SQ SCH (10:40)
[2022-12-26] MEDS: amLODIPine BESYLATE 2.5 MG TABLET (FP) PO SCH (10:42)
[2022-12-26] MEDS ORDERED: REMDESIVIR 200 MG in SODIUM CHLORIDE 250 ML IVPB ONE (13:00)
[2022-12-26] MEDS: REMDESIVIR 100 MG in SODIUM CHLORIDE 270 ML IVPB SCH (13:41)
[2022-12-26] MEDS: ATORVASTATIN CA 20 MG TABLET (FP) PO SCH (21:11)
[2022-12-27 01:58] VITALS: RESP 18
[2022-12-27] MEDS: INSULIN SLIDING SCALE (NOVOLOG) 1 VIAL SQ SCH ×2 (06:47→11:38)
[2022-12-27 08:08] LABS: ALBUMIN 3.9 g/dl (3.4-5.0); BILIRUBIN,TOTAL 0.5 mg/dl (0.2-1); CALCIUM 8.7 mg/dl (8.5-10.1); CREATININE 0.9 mg/dl (0.6-1.3); POTASSIUM 3.6 mmol/L (3.5-5.1); SGOT/AST 40.4 U/L (15-37); SGPT/ALT 39.2 U/L (7-52); TOT PROT 5.8 g/dl (6.4-8.2)
[2022-12-27 09:50] LABS: HEMATOCRIT 38.7 % (32.4-45.2); HEMOGLOBIN 12.5 GM/dL (10.7-15.3); MCH 28.4 pg (25.7-33.7); MCHC 32.3 g/dl (32.0-36.0); MEAN CELL VOLUME 88.1 fl (80-96); PLATELET COUNT 155 10^3/uL (134-434); RBC 4.39 M/mm3 (3.60-5.2); RDW 14.6 % (11.6-15.6); WHITE BLOOD COUNT 3.8 K/mm3 (4.0-10.0)
[2022-12-27] MEDS ORDERED: CEFTRIAXONE 1 GM in DEXTROSE 5%-WATER - 50 ML IVPB ONE (10:00)
[2022-12-27] MEDS ORDERED: amLODIPine BESYLATE 5 MG TABLET (FP) PO SCH (10:00)
[2022-12-27] MEDS: SERTRALINE HCL 50 MG TABLET (FP) PO SCH (10:06)
[2022-12-27] MEDS: ENOXAPARIN NA (PORCINE) 40 MG/0.4 ML DISP.SYRIN SQ SCH (11:06)
[2022-12-27] MEDS: DEXAMETHASONE SOD PHOSPHATE 10 MG/1 ML VIAL IVPUSH SCH (11:07)
[2022-12-27] MEDS: risperiDONE 1 MG TABLET PO SCH (11:38)
[2022-12-27] MEDS: REMDESIVIR 100 MG in SODIUM CHLORIDE 270 ML IVPB SCH (12:56)
[2022-12-27 14:34] VITALS: BP 178/75; PULSE 77; TEMP 99.4
== END 2022-12-27 15:05 | disposition home or self-care (01) | DRG 178 ==
LOC: FER 22:39 → FM/S 12-25 01:31
PROVIDERS: ADMIT Internal Medicine
PROC: XW033E5 Introduction of Remdesivir Anti-infective into Peripheral Vein, Percutaneous Approach, New Technology Group 5 (ICD-10-PCS; principal; 2022-12-24)
DX: U07.1 COVID-19 (principal); N39.0 Urinary tract infection, site not specified; E78.5 Hyperlipidemia, unspecified; E11.9 Type 2 diabetes mellitus without complications; F31.9 Bipolar disorder, unspecified; J45.909 Unspecified asthma, uncomplicated; G30.9 Alzheimer's disease, unspecified; F02.80 Dementia in other diseases classified elsewhere, unspecified severity, without behavioral disturbance, psychotic disturbance, mood disturbance, and anxiety; Z79.84 Long term (current) use of oral hypoglycemic drugs; R09.02 Hypoxemia
CPT/HCPCS: 0241U-QW; 36415; 70450-TC; 71045-TC-FY; 80053; 82728; 82962; 83605; 83615; 83735; 84484; 85027; 85379; 86140; 87040; 87086; 87186; 97116-GP; 97162-GP; 99285-25; C9399; J1100

== ENCOUNTER 2024-02-19 18:45 | Inpatient (IN) | payer OTHER, BC ==
[2024-02-19 19:43] LABS: HEMATOCRIT 42.6 % (32.4-45.2); HEMOGLOBIN 14.1 G/dL (10.7-15.3); MCH 30.5 pg (25.7-33.7); MEAN CELL VOLUME 92.1 fl (80-96); MEAN PLT VOLUME 7.6 fl (7.5-11.1); PLATELET COUNT 189.2 10^3/uL (134-434); RBC 4.62 10^6/uL (3.60-5.2); RDW 13.8 % (11.6-15.6); WHITE BLOOD COUNT 11.1 10^3/uL (4.0-10.8)
[2024-02-19 20:10] LABS: ALBUMIN 4.7 g/dl (3.4-5.0); BILIRUBIN,TOTAL 0.7 mg/dl (0.2-1); POTASSIUM 4.7 mmol/L (3.5-5.1); TOT PROT 7.1 g/dl (6.4-8.2)
[2024-02-19] MEDS ORDERED: AZITHROMYCIN 500 MG VIAL IVPB ONE (20:45)
[2024-02-19] MEDS ORDERED: cefTRIAXone SODIUM 1 GM VIAL ONE (20:45)
[2024-02-19] MEDS: SODIUM CHLORIDE 0.9% 500 ML INFUS.BAG IV ONE (21:03)
[2024-02-19] MEDS: CEFTRIAXONE 1,000 MG in DEXTROSE 5%-WATER - 50 ML IVPB ONE (21:04)
[2024-02-19] MEDS ORDERED: HEPARIN NA (PORCINE) 5,000 UNITS/ML 1ML VIAL ONE (22:09)
[2024-02-19] MEDS: AZITHROMYCIN IVPB 500 MG in DEXTROSE 5%-WATER - 250 ML IVPB ONE (22:09)
[2024-02-19] MEDS: HEPARIN NA (PORCINE) 5,000 UNITS/ML 1ML VIAL SQ SCH (23:03)
[2024-02-20 05:08] VITALS: BMI 24.8
[2024-02-20] MEDS ORDERED: guaiFENesin 200 MG/10 ML 10 ML UNIT-DOSE CUPS PO PRN (06:43)
[2024-02-20] MEDS ORDERED: guaiFENesin/D-M SUGAR-FREE/ACLHOL-FREE 118 ML BOTTLE PO PRN (07:19)
[2024-02-20 08:39] LABS: CALCIUM 9.1 mg/dl (8.5-10.1); CREATININE 0.7 mg/dl (0.6-1.3); POTASSIUM 3.9 mmol/L (3.5-5.1)
[2024-02-20 09:19] LABS: HEMATOCRIT 35.7 % (32.4-45.2); HEMOGLOBIN 11.8 G/dL (10.7-15.3); MCH 30.1 pg (25.7-33.7); MCHC 32.9 g/dl (32.0-36.0); MEAN CELL VOLUME 91.6 fl (80-96); MEAN PLT VOLUME 7.6 fl (7.5-11.1); PLATELET COUNT 179.4 10^3/uL (134-434); RDW 13.8 % (11.6-15.6); WHITE BLOOD COUNT 8.6 10^3/uL (4.0-10.8)
[2024-02-20] MEDS ORDERED: ALBUTEROL SO4 HFA INHALER IH PRN (10:29)
[2024-02-20] MEDS: SERTRALINE HCL 50 MG TABLET (FP) PO SCH (10:33)
[2024-02-20] MEDS: metFORMIN HCL 500 MG TABLET (FP) PO SCH (10:34)
[2024-02-20] MEDS: risperiDONE 1 MG TABLET PO SCH (10:37)
[2024-02-20] MEDS: CEFTRIAXONE 1 GM in DEXTROSE 5%-WATER - 50 ML IVPB SCH (10:47)
[2024-02-20] MEDS: AZITHROMYCIN IVPB 500 MG/250 ML BAG IVPB SCH (11:06)
[2024-02-20] MEDS: glyBURIDE 5 MG TABLET PO SCH (11:11)
[2024-02-20 11:15] LABS: PLATELET ESTIMATE ADEQUATE
[2024-02-20] MEDS: ATORVASTATIN CA 20 MG TABLET (FP) PO SCH (21:28)
[2024-02-21] MEDS: amLODIPine BESYLATE 5 MG TABLET (FP) PO ONE (00:14)
[2024-02-21 08:51] LABS: ALBUMIN 3.8 g/dl (3.4-5.0); BILIRUBIN,TOTAL 0.6 mg/dl (0.2-1); CALCIUM 9.2 mg/dl (8.5-10.1); CREATININE 0.8 mg/dl (0.6-1.3); POTASSIUM 3.9 mmol/L (3.5-5.1); TOT PROT 5.9 g/dl (6.4-8.2)
[2024-02-21 09:19] LABS: BASO % 0.4 % (0-2.0); EOS % 2.3 % (0-4.5); HEMATOCRIT 33.7 % (32.4-45.2); HEMOGLOBIN 11.9 GM/dL (10.7-15.3); LYMPH % 20.6 % (8-40); MCH 30.9 pg (25.7-33.7); MCHC 35.5 g/dl (32.0-36.0); MEAN PLT VOLUME 7.4 fl (7.5-11.1); MONO % 8.7 % (3.8-10.2); PLATELET COUNT 222 10^3/uL (134-434); RBC 3.87 M/mm3 (3.60-5.2); RDW 13.2 % (11.6-15.6); WHITE BLOOD COUNT 7.3 K/mm3 (4.0-10.0)
[2024-02-22 08:58] LABS: ALBUMIN 3.8 g/dl (3.4-5.0); BILIRUBIN,TOTAL 0.5 mg/dl (0.2-1); CALCIUM 9.1 mg/dl (8.5-10.1); CREATININE 0.8 mg/dl (0.6-1.3); TOT PROT 5.9 g/dl (6.4-8.2)
[2024-02-22] MEDS: MEROPENEM 1 GM in DEXTROSE 5%-WATER 100 ML IVPB ONE (12:06)
[2024-02-22 12:52] LABS: BASO % 0.4 % (0-2.0); EOS % 2.9 % (0-4.5); HEMOGLOBIN 11.3 GM/dL (10.7-15.3); LYMPH % 17.2 % (8-40); MCH 29.5 pg (25.7-33.7); MCHC 33.4 g/dl (32.0-36.0); MEAN CELL VOLUME 88.3 fl (80-96); MEAN PLT VOLUME 7.5 fl (7.5-11.1); MONO % 10.6 % (3.8-10.2); NEUT % 68.9 % (42.8-82.8); PLATELET COUNT 239 10^3/uL (134-434); RBC 3.85 M/mm3 (3.60-5.2); RDW 13.2 % (11.6-15.6); WHITE BLOOD COUNT 7.6 K/mm3 (4.0-10.0)
[2024-02-22] MEDS: MEROPENEM 1 GM in DEXTROSE 5%-WATER 100 ML IVPB SCH (19:39)
[2024-02-23] MEDS: ACETAMINOPHEN 500 MG TABLET (FP) PO ONE (21:31)
[2024-02-24 09:46] LABS: ALBUMIN 3.6 g/dl (3.4-5.0); BILIRUBIN,TOTAL 0.4 mg/dl (0.2-1); CALCIUM 9.2 mg/dl (8.5-10.1); CREATININE 0.8 mg/dl (0.6-1.3); POTASSIUM 4.7 mmol/L (3.5-5.1); TOT PROT 5.7 g/dl (6.4-8.2)
[2024-02-24] MEDS ORDERED: ACETAMINOPHEN 325 MG TABLET (FP) PO PRN (10:05)
[2024-02-24] MEDS: amLODIPine BESYLATE 5 MG TABLET (FP) PO SCH (10:35)
[2024-02-24 11:45] LABS: BASO % 0.5 % (0-2.0); EOS % 2.9 % (0-4.5); HEMATOCRIT 33.9 % (32.4-45.2); HEMOGLOBIN 11.4 GM/dL (10.7-15.3); LYMPH % 27.7 % (8-40); MCH 29.4 pg (25.7-33.7); MCHC 33.5 g/dl (32.0-36.0); MEAN CELL VOLUME 87.6 fl (80-96); MONO % 9.7 % (3.8-10.2); NEUT % 59.2 % (42.8-82.8); PLATELET COUNT 221 10^3/uL (134-434); RBC 3.87 M/mm3 (3.60-5.2); RDW 13.5 % (11.6-15.6); WHITE BLOOD COUNT 7.6 K/mm3 (4.0-10.0)
[2024-02-25 09:05] LABS: ALBUMIN 3.5 g/dl (3.4-5.0); BILIRUBIN,TOTAL 0.4 mg/dl (0.2-1); CALCIUM 9.2 mg/dl (8.5-10.1); CREATININE 0.7 mg/dl (0.6-1.3); POTASSIUM 4.1 mmol/L (3.5-5.1); TOT PROT 5.5 g/dl (6.4-8.2)
[2024-02-25 09:54] LABS: BASO % 0.4 % (0-2.0); EOS % 2.8 % (0-4.5); HEMATOCRIT 31.4 % (32.4-45.2); LYMPH % 16.4 % (8-40); MCH 30.2 pg (25.7-33.7); MCHC 34.9 g/dl (32.0-36.0); MEAN CELL VOLUME 86.6 fl (80-96); MEAN PLT VOLUME 7.2 fl (7.5-11.1); NEUT % 71.4 % (42.8-82.8); PLATELET COUNT 235 10^3/uL (134-434); RBC 3.63 M/mm3 (3.60-5.2); WHITE BLOOD COUNT 8.9 K/mm3 (4.0-10.0)
[2024-02-26] MEDS ORDERED: amLODIPine BESYLATE 10 MG TABLET (FP) PO SCH (07:36)
[2024-02-26 08:45] LABS: ALBUMIN 3.7 g/dl (3.4-5.0); BILIRUBIN,TOTAL 0.5 mg/dl (0.2-1); CALCIUM 9.3 mg/dl (8.5-10.1); CREATININE 0.7 mg/dl (0.6-1.3); POTASSIUM 4.1 mmol/L (3.5-5.1); TOT PROT 5.7 g/dl (6.4-8.2)
[2024-02-26] MEDS: amLODIPine BESYLATE 10 MG TABLET (FP) PO SCH (09:47)
[2024-02-26] MEDS: ENOXAPARIN NA (PORCINE) 40 MG/0.4 ML DISP.SYRIN SQ SCH (09:47)
[2024-02-26] MEDS: DOCUSATE SODIUM 100 MG CAPSULE (FP) PO SCH (09:48)
[2024-02-26 10:34] LABS: BASO % 0.4 % (0-2.0); EOS % 2.2 % (0-4.5); HEMATOCRIT 33.8 % (32.4-45.2); HEMOGLOBIN 11.6 GM/dL (10.7-15.3); LYMPH % 12.9 % (8-40); MCH 30.2 pg (25.7-33.7); MCHC 34.3 g/dl (32.0-36.0); MEAN CELL VOLUME 87.8 fl (80-96); MEAN PLT VOLUME 7.1 fl (7.5-11.1); MONO % 9.2 % (3.8-10.2); NEUT % 75.3 % (42.8-82.8); PLATELET COUNT 276 10^3/uL (134-434); RBC 3.84 M/mm3 (3.60-5.2); RDW 12.8 % (11.6-15.6); WHITE BLOOD COUNT 9.2 K/mm3 (4.0-10.0)
[2024-02-27 06:55] VITALS: RESP 18
[2024-02-27 08:28] LABS: CALCIUM 9.3 mg/dl (8.5-10.1); CREATININE 0.8 mg/dl (0.6-1.3)
[2024-02-27 08:29] LABS: HEMATOCRIT 34.6 % (32.4-45.2); HEMOGLOBIN 10.9 G/dL (10.7-15.3); MCH 28.9 pg (25.7-33.7); MCHC 31.4 g/dl (32.0-36.0); MEAN CELL VOLUME 91.8 fl (80-96); MEAN PLT VOLUME 7.3 fl (7.5-11.1); PLATELET COUNT 249.1 10^3/uL (134-434); RBC 3.77 10^6/uL (3.60-5.2); WHITE BLOOD COUNT 9.6 10^3/uL (4.0-10.8)
[2024-02-27 08:41] LABS: INR 1.12 (0.83-1.09); PROTHROMBIN TIME (PATIENT) 12.7 SEC (9.7-13.0)
[2024-02-27 17:42] VITALS: BP 151/80; PULSE 85; TEMP 97.5
== END 2024-02-27 17:30 | DRG 871 ==
LOC: FER 18:45 → FM/S 21:26
PROVIDERS: ADMIT Internal Medicine; ATTEND Internal Medicine
PROC: 02HV33Z Insertion of Infusion Device into Superior Vena Cava, Percutaneous Approach (ICD-10-PCS; principal; 2024-02-27)
PROC: B518ZZA Fluoroscopy of Superior Vena Cava, Guidance (ICD-10-PCS; 2024-02-27)
DX: A41.89 Other specified sepsis (principal); J18.9 Pneumonia, unspecified organism; N39.0 Urinary tract infection, site not specified; Z16.12 Extended spectrum beta lactamase (ESBL) resistance; E78.5 Hyperlipidemia, unspecified; E11.9 Type 2 diabetes mellitus without complications; R47.02 Dysphasia; J45.909 Unspecified asthma, uncomplicated; F31.9 Bipolar disorder, unspecified; G30.9 Alzheimer's disease, unspecified; F02.80 Dementia in other diseases classified elsewhere, unspecified severity, without behavioral disturbance, psychotic disturbance, mood disturbance, and anxiety; F25.9 Schizoaffective disorder, unspecified; B96.29 Other Escherichia coli [E. coli] as the cause of diseases classified elsewhere
CPT/HCPCS: 0241U-QW; 36415; 36569; 71045-TC-FY; 71250-TC; 80048; 80053; 81003; 81015; 82550; 82962; 84484; 85025; 85027; 85610; 87040; 87086; 87186; 87635; 87899; 93005; 97116-GP; 97162-GP; 99285-25; J1644